=== PATIENT | female | born 1995 | race Caucasian/White ===

== ENCOUNTER 2017-03-12 15:49 | Outpatient (CLI) ==
[2014-03-15 18:43] VITALS: BMI 26.6
[2017-03-12 16:25] LABS: BASOPHILS % (AUTO) 0.6 % (0.0-3.0); EOSINOPHILS # (AUTO) 0.2 K/ul (0.0-0.7); EOSINOPHILS % (AUTO) 3.2 % (0.0-7.0); HEMATOCRIT 44.2 % (37.0-47.0); IMMATURE GRANULOCYTE % (AUTO) 0.1 % (0.0-5.0); LYMPHOCYTES # (AUTO) 2.1 K/uL (0.60-3.4); MEAN CORPUSCULAR HEMOGLOBIN 28.1 pg (27.0-31.0); MEAN CORPUSCULAR HGB CONC 33.9 (31.8-35.4); MEAN CORPUSCULAR VOLUME 82.8 fl (81.0-99.0); MONOCYTES # (AUTO) 0.4 K/uL (0.4-2.0); MONOCYTES % (AUTO) 5.1 (0-10); NEUTROPHILS # (AUTO) 4.1 K/ul (2.0-6.9); PLATELET COUNT 297 10^3/uL (140-440); RED BLOOD COUNT 5.34 10^6/ul (4.20-5.40); WHITE BLOOD COUNT 6.87 K/ul (4.6-10.2)
[2017-03-12 17:12] LABS: ALBUMIN 4.3 g/dL (3.7-5.6); ALBUMIN/GLOBULIN RATIO 1.13; ANION GAP 13.6; BILIRUBIN,TOTAL 0.77 mg/dL (0.60-1.40); BUN/CREATININE RATIO 15.27; CHOL/HDL RATIO 3.9 (4.5-5.5); CREATININE 0.72 mg/dL (0.60-1.30); POTASSIUM 3.6 mmol/L (3.5-5.10); TOTAL PROTEIN 8.1 g/dL (6.4-8.2)
== END 2017-03-12 15:50 | disposition home or self-care (01) ==
LOC: LAB 15:49
PROVIDERS: ATTEND Nurse Practitioner Family
DX: R63.5 Abnormal weight gain (principal)
CPT/HCPCS: 36415; 80053; 80061; 84443; 85025